=== PATIENT | female | born 1975 | race African-American/Black ===

== ENCOUNTER 2017-01-29 12:22 | Day surgery (SDC) | payer OTHER ==
[2017-01-28 11:27] VITALS: BMI 44.4
[2017-01-29] MEDS ORDERED: Propofol 200 MG/20 ML VIAL ONE (15:14)
[2017-01-29] MEDS ORDERED: Lidocaine 1% PF 5 ML VIAL ONE (15:14)
--- NOTE | 2017-01-29 15:40 | OP ---
DATE OF PROCEDURE: 01/29/2017 TITLE OF PROCEDURE: Esophagogastroduodenoscopy with biopsy. PREPROCEDURE DIAGNOSES: 1. Atypical sharp chest pain. 2. History of chronic reflux. 3. History of cardiomyopathy. POSTPROCEDURE DIAGNOSES: 1. Examination to second portion of duodenum. 2. Normal esophagus with biopsies obtained in the lower esophagus at 33 cm for histology. 3. Normal stomach. 4. Normal duodenum. PROCEDURE IN DETAIL: Written informed consent was obtained. The patient was brought to the endoscop y suite. Total intravenous anesthesia was provided by Dr. Joyner and associates. The patient was rishi corina in the left lateral decubitus position. A bite block was inserted into the mouth. A Pentax vide o diagnostic gastroscope was introduced into the oral cavity and the esophagus was carefully intubate d. The gastroscope was advanced under direct visualization to the second portion of the duodenum. T he endoscopic findings included a normal-appearing esophagus with grossly normal appearing motility. The Z-line appeared mildly irregular, but no erosion or ulcer was identified. Biopsies were obtaine d in the lower esophagus at 33 cm for histology. The stomach was entered and carefully examined. Th is included a retroflexed view of the cardia and fundus that was unremarkable. No ulcer or gastritis was seen. The duodenum from the bulb to the second portion was also examined and appeared normal. There was no evidence of gastric outlet obstruction. The stomach was decompressed. The endoscope wa s removed from the patient. She was transferred to the day stay surgery area for post-procedure maverick toring. There were no immediate complications. RECOMMENDATIONS: 1. Await biopsy results. 2. Resume previous medications, but increase the Nexium to b.i.d. for 6 weeks. 3. Follow up with GI in 6 weeks. 4. If symptoms persist despite high dose acid suppression, we will suggest esophageal manometry.
== END 2017-01-29 15:45 | disposition home or self-care (01) ==
LOC: SDC 12:22
PROVIDERS: ATTEND Internal Medicine Gastroenterology
PROC: 0DB38ZX Excision of Lower Esophagus, Via Natural or Artificial Opening Endoscopic, Diagnostic (ICD-10-PCS; principal; 2017-01-29)
DX: K21.9 Gastro-esophageal reflux disease without esophagitis (principal); R07.89 Other chest pain; I42.9 Cardiomyopathy, unspecified; Z79.52 Long term (current) use of systemic steroids; Z79.899 Other long term (current) drug therapy; Z88.1 Allergy status to other antibiotic agents; Z98.51 Tubal ligation status; Z95.810 Presence of automatic (implantable) cardiac defibrillator; Z90.710 Acquired absence of both cervix and uterus; Z90.49 Acquired absence of other specified parts of digestive tract; Z98.890 Other specified postprocedural states
CPT/HCPCS: 88305; 88312; 88313; J2001; J2704

== ENCOUNTER 2019-07-11 15:10 | Outpatient (CLI) | payer OTHER ==
--- NOTE | 2019-07-11 15:39 | ULT ---
EXAM: Left lower extremity venous Doppler HISTORY: Left lower extremity pain intermittently. FINDINGS: Grayscale, color-flow, Doppler evaluation, spectral analysis of the left lower extremity venous struc tures is performed with 2-D imaging. The left common femoral, superficial femoral, popliteal, posterior tibial, proximal greater saphenous and profunda femoral veins are imaged. There is normal luminal compressibility, flow, and augmentation in the visualized deep venous structu res of the left lower extremity. IMPRESSION: No evidence of a deep vein thrombosis in the visualized deep venous structures left lower extremity.
== END 2019-07-11 15:11 | disposition home or self-care (01) ==
LOC: SCSULT 15:10
PROVIDERS: ATTEND Physician Assistant
DX: M79.605 Pain in left leg (principal)

== ENCOUNTER 2022-05-28 09:13 | Day surgery (SDC) | payer OTHER ==
[2022-05-26 11:45] VITALS: BMI 40.6
[2022-05-28] MEDS ORDERED: KETAMINE 100 MG/ML (5ML VIAL) ONE (10:39)
[2022-05-28] MEDS ORDERED: PROPOFOL 200 MG/20 ML VIAL ONE (10:46)
[2022-05-28] MEDS ORDERED: Lidocaine 1% PF 5 ML VIAL ONE (10:46)
== END 2022-05-28 12:34 | disposition home or self-care (01) ==
LOC: SDC 09:13
PROVIDERS: ATTEND Internal Medicine Gastroenterology
PROC: 0DJD8ZZ Inspection of Lower Intestinal Tract, Via Natural or Artificial Opening Endoscopic (ICD-10-PCS; principal; 2022-05-28)
PROC: 0DB98ZX Excision of Duodenum, Via Natural or Artificial Opening Endoscopic, Diagnostic (ICD-10-PCS; principal; 2022-05-28)
PROC: 0DB68ZX Excision of Stomach, Via Natural or Artificial Opening Endoscopic, Diagnostic (ICD-10-PCS; principal; 2022-05-28)
DX: Z12.11 Encounter for screening for malignant neoplasm of colon (principal); K21.00 Gastro-esophageal reflux disease with esophagitis, without bleeding; K64.8 Other hemorrhoids; K62.89 Other specified diseases of anus and rectum; Q43.8 Other specified congenital malformations of intestine; K44.9 Diaphragmatic hernia without obstruction or gangrene; Z79.83 Long term (current) use of bisphosphonates; Z79.899 Other long term (current) drug therapy; Z88.1 Allergy status to other antibiotic agents; Z88.2 Allergy status to sulfonamides; Z88.5 Allergy status to narcotic agent; Z88.8 Allergy status to other drugs, medicaments and biological substances
CPT/HCPCS: 88305; J2704